=== PATIENT | female | born 1995 | race Caucasian/White ===

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

== ENCOUNTER 2018-04-26 20:10 | Emergency (ER) | payer BC, OTHER ==
[~2018-04-26] VITALS: Ht 152.4 cm; Wt 47.6 kg
[2018-04-26] MEDS ORDERED: SYNTHROID 50 MCG TABLET (20:35)
[2018-04-26 21:14] VITALS: BP 106/61
== END 2018-04-26 21:15 | disposition home or self-care (01) ==
LOC: ER 20:12
DX: J06.9 Acute upper respiratory infection, unspecified (principal); E03.9 Hypothyroidism, unspecified
CPT/HCPCS: A4663

== ENCOUNTER 2018-11-19 19:03 | Emergency (ER) | payer BC, OTHER ==
[~2018-11-19] VITALS: Ht 152.4 cm; Wt 49.9 kg
[~2018-11-19 19:03] MED LIST changes: -LEVO50TA8 PO; +SYNTHROID 50 MCG TABLET
--- NOTE | 2018-11-19 20:30 | NUR ---
Dr. Land at bedside for MSE.
[2018-11-19] MEDS ORDERED: HYDROCODONE/APAP 10-325 MG TABLET ONE (20:42)
[2018-11-19] MEDS ORDERED: HYDROCODONE/APAP 10-325 MG TABLET PO ONE (20:45)
[2018-11-19 20:48] LABS: *URINE HCG, QUAL NEGATIVE (NEGATIVE)
--- NOTE | 2018-11-19 20:53 | NUR ---
Pt out of ER for CT.
--- NOTE | 2018-11-19 21:15 | NUR ---
Pt back to ER from CT.
--- NOTE | 2018-11-19 22:13 | NUR ---
Patient discharged to home in stable conditon. Written and verbal after care instructions given. Patient verbalizes understanding of instructions. Pt ambulated out of ER with steady gait, no acute signs of distress, VSS, all belongings taken.
[2018-11-19 22:14] VITALS: BP 110/74
== END 2018-11-19 22:14 | disposition home or self-care (01) ==
LOC: ER 19:03
DX: S00.83XA Contusion of other part of head, initial encounter (principal); S16.1XXA Strain of muscle, fascia and tendon at neck level, initial encounter; E03.9 Hypothyroidism, unspecified; Z79.899 Other long term (current) drug therapy; V43.52XA Car driver injured in collision with other type car in traffic accident, initial encounter; Y93.89 Activity, other specified; Y92.410 Unspecified street and highway as the place of occurrence of the external cause; Y99.8 Other external cause status
CPT/HCPCS: 70450; 70486; 72100; 72125; 84703; A4663

== ENCOUNTER 2019-04-05 17:51 | Emergency (ER) | payer BC, OTHER ==
[~2019-04-05] VITALS: Ht 152.4 cm; Wt 49.9 kg
[2019-04-05] MEDS ORDERED: PENICILLIN G BENZATHINE 2.4 MMU/4 ML DISP.SYRIN IM ONE ×2 (18:36→18:45)
--- NOTE | 2019-04-05 18:52 | NUR ---
Patient discharged to home in stable conditon. Written and verbal after care instructions given. Patient verbalizes understanding of instructions.pt walks in steady gait. no sign of allergic reaction.
== END 2019-04-05 18:57 | disposition home or self-care (01) ==
LOC: ER 17:53
DX: J03.90 Acute tonsillitis, unspecified (principal); E03.9 Hypothyroidism, unspecified; Z79.899 Other long term (current) drug therapy
CPT/HCPCS: A4663

== ENCOUNTER 2019-05-02 13:00 | Emergency (ER) | payer BC, OTHER ==
[~2019-05-02] VITALS: Ht 152.4 cm; Wt 49.9 kg
--- NOTE | 2019-05-02 13:30 | NUR ---
patient was seen by . Rapid strep specimen sent to lab
[2019-05-02] MEDS ORDERED: DEXAMETHASONE SOD PHOSPHATE 10 MG INJ ONE (13:45)
[2019-05-02] MEDS ORDERED: DEXAMETHASONE SOD PHOSPHATE 4 MG INJ IM ONE (14:00)
--- NOTE | 2019-05-02 14:33 | NUR ---
THROAT CX SENT TO LAB. DC, RX AND FOLLOW UP INSTRUCTIONS GIVEN AND EXPLAINED TO PATIENT WHO STATES SHE UNDERSTANDS ALL INSTRUCTIONS
== END 2019-05-02 14:34 | disposition home or self-care (01) ==
LOC: ER 13:00
DX: J02.9 Acute pharyngitis, unspecified (principal); E03.9 Hypothyroidism, unspecified; Z79.899 Other long term (current) drug therapy
CPT/HCPCS: 36415; 86403; 87070; 96372; 99283; J1100; A4663

== ENCOUNTER 2019-06-13 21:59 | Emergency (ER) | payer BC, OTHER ==
[~2019-06-13] VITALS: Ht 152.4 cm; Wt 45.4 kg
--- NOTE | 2019-06-13 22:25 | NUR ---
No beds currently available in ER, sent patient back to waiting room.
--- NOTE | 2019-06-13 22:55 | NUR ---
Dr. Perez at bedside for MSE.
[2019-06-13 23:53] VITALS: BP 128/72
== END 2019-06-13 23:54 | disposition home or self-care (01) ==
LOC: ER 21:59
DX: S93.505A Unspecified sprain of left lesser toe(s), initial encounter (principal); E03.9 Hypothyroidism, unspecified; Z79.899 Other long term (current) drug therapy; X58.XXXA Exposure to other specified factors, initial encounter; Y93.89 Activity, other specified; Y92.89 Other specified places as the place of occurrence of the external cause; Y99.8 Other external cause status
CPT/HCPCS: 73660; A4663

== ENCOUNTER 2019-09-25 16:22 | Emergency (ER) | payer BC, OTHER ==
[~2019-09-25] VITALS: Ht 152.4 cm; Wt 45.4 kg
[2019-09-25] MEDS ORDERED: PENICILLIN G BENZATHINE 2.4 MMU/4 ML DISP.SYRIN IM ONE ×2 (17:20→17:30)
--- NOTE | 2019-09-25 17:34 | NUR ---
Patient discharged to home in stable conditon. Written and verbal after care instructions given. Patient verbalizes understanding of instructions.no reaction to antibiotic.
== END 2019-09-25 17:35 | disposition home or self-care (01) ==
LOC: ER 16:22
DX: J06.9 Acute upper respiratory infection, unspecified (principal)
CPT/HCPCS: A4663

== ENCOUNTER 2020-03-02 20:33 | Emergency (ER) | payer BC, OTHER ==
[~2020-03-02] VITALS: Ht 152.4 cm; Wt 47.6 kg
[2020-03-02 21:28] LABS: *BILIRUBIN,URIN NEGATIVE (NEGATIVE); *BLOOD, URINE NEGATIVE (NEGATIVE); *CLARITY,URINE CLEAR (CLEAR); *COLOR,URINE YELLOW (YELLOW); *KETONES,URINE NEGATIVE (NEGATIVE); *UROBILINOGEN,URINE 0.2 E.U./dl (NORMAL); LEUKOCYTE ESTERASE ,URINE NEGATIVE (NEGATIVE); NITRITE, URINE NEGATIVE (NEGATIVE); UGLUCOSE NEGATIVE (NEGATIVE)
[2020-03-02 21:29] LABS: *URINE HCG, QUAL NEGATIVE (NEGATIVE)
--- NOTE | 2020-03-02 21:55 | NUR ---
Patient discharged to home in stable condition. Written and verbal after care instructions given. Patient verbalizes understanding of instructions. Stressed follow up or return to ER for worsening s/s.
[2020-03-02 21:56] VITALS: BP 107/91
== END 2020-03-02 21:56 | disposition home or self-care (01) ==
LOC: ER 20:33
DX: B34.9 Viral infection, unspecified (principal); Z20.828 Contact with and (suspected) exposure to other viral communicable diseases; E03.9 Hypothyroidism, unspecified; Z83.3 Family history of diabetes mellitus; Z79.890 Hormone replacement therapy
CPT/HCPCS: 81001; 82962; 84703; 99283; U0003; A4663

== ENCOUNTER 2021-04-07 09:30 | Outpatient (CLI) | payer BC, OTHER ==
[2021-04-08 08:06] LABS: TRIIODOTHYRONINE, FREE 3.2 pg/mL (2.0-4.4)
== END 2021-04-07 23:59 | disposition home or self-care (01) ==
LOC: LAB 09:30
PROVIDERS: ATTEND Internal Medicine
DX: E03.9 Hypothyroidism, unspecified (principal); E55.9 Vitamin D deficiency, unspecified
CPT/HCPCS: 36415; 70030-TC; 82306; 84443; 84480; 84481; 86800

== ENCOUNTER 2021-05-08 18:13 | Emergency (ER) | payer BC, OTHER ==
[~2021-05-08] VITALS: Ht 152.4 cm; Wt 49.9 kg
--- NOTE | 2021-05-08 18:22 | NUR ---
at bedside for assessment
[2021-05-08 18:41] LABS: *BLOOD, URINE TRACE INTACT (NEGATIVE); *CLARITY,URINE CLEAR (CLEAR); *COLOR,URINE YELLOW (YELLOW); UGLUCOSE NEGATIVE (NEGATIVE)
[2021-05-08 18:42] LABS: *BILIRUBIN,URIN NEGATIVE (NEGATIVE); *KETONES,URINE NEGATIVE (NEGATIVE); *UROBILINOGEN,URINE 0.2 E.U./dl (NORMAL); LEUKOCYTE ESTERASE ,URINE NEGATIVE (NEGATIVE); NITRITE, URINE NEGATIVE (NEGATIVE)
--- NOTE | 2021-05-08 18:44 | NUR ---
URINE SPECIMEN SENT TO LAB.
[2021-05-08 18:53] LABS: BACTERIA,URINE FEW /HPF (NONE SEEN); RBC,URINE 0-3 /HPF (0-3); SQUAMOUS EPITHELIAL CELL,UR FEW /HPF (NONE SEEN); WBC,URINE 0-3 /HPF (0-3)
[2021-05-08 19:13] LABS: HEMATOCRIT 41.9 % (31.2-41.9); MEAN CORPUSCULAR VOLUME 86.1 fL (75.5-95.3); PLATELET COUNT (AUTO) 243 K/uL (179-408)
--- NOTE | 2021-05-08 19:41 | NUR ---
US at bedside.
[2021-05-08] MEDS ORDERED: PHEN-704 PO (20:32)
[2021-05-08 20:35] VITALS: BP 115/76
--- NOTE | 2021-05-08 20:35 | NUR ---
Patient discharged to home in stable condition. Written and verbal after care instructions given. Patient verbalizes understanding of instructions. Stressed follow up or return to ER for worsening s/s. Patient out of ER with steady gait, no acute signs of distress, VSS, all belongings taken.
== END 2021-05-08 20:35 | disposition home or self-care (01) ==
LOC: ER 18:14
DX: R30.0 Dysuria (principal); Z87.440 Personal history of urinary (tract) infections; E03.9 Hypothyroidism, unspecified; Z83.3 Family history of diabetes mellitus; Z82.49 Family history of ischemic heart disease and other diseases of the circulatory system; Z79.890 Hormone replacement therapy
CPT/HCPCS: 36415; 76856; 85025; 87086; A4663

== ENCOUNTER 2021-11-25 15:13 | Emergency (ER) | payer BC, OTHER ==
[~2021-11-25] VITALS: Ht 152.4 cm; Wt 49.9 kg
[~2021-11-25 15:13] MED LIST changes: +PHEN-704 PO
[2021-11-25] MEDS ORDERED: LEVO50TA8 PO (15:28)
[2021-11-25] MEDS ORDERED: AMOXicillin 250 MG CAPSULE PO ONE (15:45)
[2021-11-25] MEDS ORDERED: predniSONE 50 MG TABLET PO ONE (15:45)
[2021-11-25] MEDS ORDERED: predniSONE 50 MG TABLET ONE (15:49)
[2021-11-25] MEDS ORDERED: AMOXicillin 250 MG CAPSULE ONE (15:50)
[2021-11-25] MEDS ORDERED: AMOX500T2 PO (16:31)
[2021-11-25] MEDS ORDERED: PRED50TA PO (16:31)
[2021-11-25 16:35] VITALS: BP 112/80
== END 2021-11-25 16:36 | disposition home or self-care (01) ==
LOC: ER 15:14
DX: H66.93 Otitis media, unspecified, bilateral (principal); Z20.822 Contact with and (suspected) exposure to COVID-19; E03.9 Hypothyroidism, unspecified; Z79.890 Hormone replacement therapy
CPT/HCPCS: 87400; A4663; J7512

== ENCOUNTER 2022-06-05 11:59 | Outpatient (CLI) | payer BC, OTHER ==
[~2022-06-05 11:59] MED LIST changes: +AMOX500T2 PO; +LEVO50TA8 PO; +PRED50TA PO
[2022-06-06 08:06] LABS: TRIIODOTHYRONINE, FREE 2.8 pg/mL (2.0-4.4)
== END 2022-06-05 23:59 | disposition home or self-care (01) ==
LOC: LAB 11:59
PROVIDERS: ATTEND Internal Medicine Endocrinology, Diabetes & Metabolism
DX: E03.9 Hypothyroidism, unspecified (principal); E55.9 Vitamin D deficiency, unspecified
CPT/HCPCS: 36415; 70030-TC; 82306; 84443; 84480; 84481

== ENCOUNTER 2023-02-12 13:16 | Outpatient (CLI) | payer BC, OTHER ==
[2023-02-12 14:32] LABS: THYROID STIMULATING HORMONE 1.487 mIU/mL (0.358-3.740)
[2023-02-13 08:06] LABS: TRIIODOTHYRONINE, FREE 3.2 pg/mL (2.0-4.4)
== END 2023-02-12 23:59 | disposition home or self-care (01) ==
LOC: LAB 13:16
PROVIDERS: ATTEND Internal Medicine Endocrinology, Diabetes & Metabolism
DX: E03.9 Hypothyroidism, unspecified (principal); E61.1 Iron deficiency; E55.9 Vitamin D deficiency, unspecified
CPT/HCPCS: 36415; 70030-TC; 82306; 83550; 84443; 84480; 84481

== ENCOUNTER 2023-07-14 14:04 | Emergency (ER) | payer BC, OTHER ==
[~2023-07-14] VITALS: Ht 152.4 cm; Wt 49.9 kg
[2023-07-14] MEDS ORDERED: IBUPROFEN 600 MG TABLET PO ONE (14:45)
[2023-07-14] MEDS ORDERED: IBUPROFEN 600 MG TABLET ONE (15:04)
[2023-07-14] MEDS ORDERED: HYDR-3980 PO (16:50)
[2023-07-14 17:02] VITALS: BP 112/70; O2SAT 98
== END 2023-07-14 17:03 | disposition home or self-care (01) ==
LOC: ER 14:08
DX: J02.9 Acute pharyngitis, unspecified (principal); E03.9 Hypothyroidism, unspecified; Z79.899 Other long term (current) drug therapy; Z60.2 Problems related to living alone
CPT/HCPCS: 86403; A4606; A4663